=== PATIENT | female | born 1940 | race Caucasian/White ===

== ENCOUNTER 2018-01-20 06:40 | Day surgery (SDC) | payer OTHER ==
[2018-01-20] MEDS ORDERED: LIDOCAINE 2% (SDV) 5 ML INJ (08:06)
[2018-01-20] MEDS ORDERED: PROPOFOL 60 ML (08:06)
== END 2018-01-20 18:46 | disposition home or self-care (01) ==
LOC: GIL 06:40
DX: K29.50 Unspecified chronic gastritis without bleeding (principal); D12.3 Benign neoplasm of transverse colon; K64.8 Other hemorrhoids; I10 Essential (primary) hypertension; E11.9 Type 2 diabetes mellitus without complications; E78.5 Hyperlipidemia, unspecified; E66.9 Obesity, unspecified; Z68.26 Body mass index [BMI] 26.0-26.9, adult
CPT/HCPCS: 45380; 88305; 88312